=== PATIENT | male | born 1975 | race Caucasian/White ===

== ENCOUNTER 2021-11-14 22:04 | Emergency (ER) | payer BC, SELFPAY ==
--- NOTE | ~2021-11-14 | XR_ITS ---
EXAMINATION: LEFT ANKLE AND LEFT FOOT CLINICAL INFORMATION: Left ankle and foot pain. COMPARISON: None TECHNIQUE: Left foot 3 views. Left ankle 2 views. FINDINGS: Left foot: There is no visible acute fracture, dislocation or subluxation. There is mild degenerative dorsal enthesophyte first tarsometatarsal joint. Left ankle: There is no visible acute fracture, dislocation. The ankle mortise and subtalar joints are normal. There is minimal bimalleolar soft tissue swelling. XR/XR ankle LT min 3V IMPRESSION: Bimalleolar soft tissue swelling. No visible acute fracture or dislocation seen in left ankle or left foot.
--- NOTE | ~2021-11-14 | XR_ITS ---
EXAMINATION: LEFT ANKLE AND LEFT FOOT CLINICAL INFORMATION: Left ankle and foot pain. COMPARISON: None TECHNIQUE: Left foot 3 views. Left ankle 2 views. FINDINGS: Left foot: There is no visible acute fracture, dislocation or subluxation. There is mild degenerative dorsal enthesophyte first tarsometatarsal joint. Left ankle: There is no visible acute fracture, dislocation. The ankle mortise and subtalar joints are normal. There is minimal bimalleolar soft tissue swelling. XR/XR foot LT min 3V IMPRESSION: Bimalleolar soft tissue swelling. No visible acute fracture or dislocation seen in left ankle or left foot.
[2021-11-14 22:15] VITALS: BP 104/69; PULSE 70; RESP 16; TEMP 36.7; O2SAT 100; BMI 23.3
--- NOTE | 2021-11-15 00:20 | ED_ITS ---
HPI - Extremity Injury (Lower) General Chief Complaint: Extremity Injury, Lower Stated Complaint: foot broken? left Time Seen by Provider: 11/14/21 23:41 Source: patient Mode of arrival: ambulatory Limitations: no limitations History of Present Illness HPI Narrative: Patient presents emergency department for evaluation of left foot pain. He states when he was leaving from swimming today he rolled his left foot. Is uncertain which direction his foot rolled. Currently the pain is at the base of the toes, with swelling. Denies any ankle pain. Denies any numbness, tingling, or cool sensation to the foot. He is able to bear weight and ambulate, but it is painful. Denies any prior injury or surgery to the left ankle or foot. Related Data Allergies Allergy/AdvReac Type Severity Reaction Status Date / Time No Known Allergies Allergy Verified 11/14/21 22:14 Review of Systems Review of Systems: Musculoskeletal: Positive foot pain Yes all other systems are reviewed and are negative PMFSH Past Medical History Attestation statement: The following information was validated with the patient. Source: old records reviewed Social History Social History Advance Directives: No Advance Directives Information Provided: No Physical Exam Vital Signs: Vital Signs: Last Vital Signs Temp 98.0 F 11/14/21 22:15 Pulse 64 11/15/21 01:02 Resp 16 11/15/21 01:02 BP 128/71 11/15/21 01:02 Pulse Ox 99 11/15/21 01:02 O2 Del Method 11/14/21 22:15 BMI result Body Mass Index 23.3 Vital signs have been reviewed as normal and appeared to be correct. Blood pressure normal.? Heart rate normal.? Respiration rate normal. Temperature normal.? Oxygen saturation normal. Appearance: Alert.?Oriented to person, place and time. No acute distress.?Normal affect. CVS: Heart sounds normal. Normal heart rate and rhythm.? Pulses normal.?? Respiratory: No respiratory distress.? Lung sounds clear to auscultation bilaterally?? Abdomen: Soft and non-tender. Normoactive bowel sounds. Skin: Skin warm and dry.? Normal skin color.? Extremities: No lower extremity edema.? No calf ttp. Full AROM to left ankle. Tenderness to palpation over the dorsal foot at the base of the digits. Palpable 2+ DP/PT pulse Neuro: Moves all extremities spontaneously. Sensation intact bilaterally. No motor deficits. Ambulates with antalgic gait. Discharge Plan Discharge Clinical Impression: Foot sprain Patient Disposition: Home, Self-Care Instructions: Foot Sprain (ED) Additional Instructions: As we discussed, the x-ray of your left foot and ankle show no fracture or dislocation. The pain to your left foot at the base of the toes is most likely due to a sprain. Be sure to rest, apply ice for 10-15 minutes a few times daily, use Vitaliy bandage for compression, elevate the leg when possible. You can take ibuprofen 200 mg, 3 tablets (600mg) every 6-8 hours as needed for pain, in addition to Tylenol 500 mg, 2 tablets (1,000mg) every 4-6 hours as needed for pain, but not to exceed 3 doses daily (3,000mg).? Return to the emergency department any new or worsening symptoms or concerns. Follow-up with your primary care provider as needed. Stand Alone Forms: Work/School Release Interventions: ED Discharge Assessment Last Done: 11/15/21 01:12 Discharge Date/Time: 11/15/21 01:13
[2021-11-15 01:02] VITALS: BP 128/71; PULSE 64; RESP 16; O2SAT 99
== END 2021-11-15 01:13 | disposition home or self-care (01) ==
PROVIDERS: Emergency Provider Emergency Medicine; PCP Nurse Practitioner Family
DX: S93.602A Unspecified sprain of left foot, initial encounter (principal); X50.1XXA Overexertion from prolonged static or awkward postures, initial encounter; Y93.11 Activity, swimming; Y92.9 Unspecified place or not applicable; Y99.9 Unspecified external cause status
CPT/HCPCS: 73610; 73630; 99283

== ENCOUNTER 2021-12-15 06:23 | Outpatient (REF) | payer BC, SELFPAY ==
[2021-12-15 11:24] LABS: MANUAL DIFF FLAG NO
[2021-12-15 11:44] LABS: Basophils Percent Auto 0.8 % (0-2); Eosinophils Absolute Auto 0.1 X10*3/uL (0.0-0.4); Eosinophils Percent Auto 2.3 % (0-4); Hematocrit 50.5 % (42.0-52.0); Hemoglobin 17.5 g/dl (14.0-18.0); Imm Gran Abs Auto 0.01 X10*3/uL (0.00-0.03); Imm Gran Pct Auto 0.3 % (0.0-0.4); Lymphocytes Absolute Auto 1.5 X10*3/uL (1.2-4.9); Lymphocytes Percent Auto 36.9 % (20-40); Mean Corpuscular HGB Conc 34.7 g/dl (31.0-36.0); Mean Corpuscular Hemoglobin 31.7 pg (27.0-33.0); Mean Corpuscular Volume 91.5 fL (80.0-98.0); Mean Platelet Volume 11.5 fL (9.4-12.4); Monocytes Absolute Auto 0.5 X10*3/uL (0.1-1.2); Monocytes Percent Auto 11.7 % (2-11); Neutrophils Absolute Auto 1.9 x10*3/uL (2.0-8.3); Platelet Count 191 X10*3/uL (160-400); Red Blood Count 5.52 X10*6/uL (4.60-5.80); Red Cell Distribution Width 13.2 % (11.0-16.0); White Blood Count 3.9 X10*3/uL (4.8-10.8)
[2021-12-15 12:40] LABS: Alanine Aminotransferase 23 U/L (0-40); Albumin Level 4.6 g/dL (3.5-5.0); Alkaline Phosphatase 64 U/L (39-117); Anion Gap 13 (12-20); Aspartate Amino Transferase 18 U/L (5-37); Bilirubin Total 1.4 mg/dL (0.0-1.0); Blood Urea Nitrogen 17 mg/dL (9-16); Calcium 9.4 mg/dL (8.4-10.2); Carbon Dioxide 28 mmol/L (22-29); Chloride 101 mmol/L (96-108); Cholesterol 220 mg/dL; Estimated Glomerular Filt Rate > 60; Glucose Fasting 93 mg/dL (60-99); HDL Cholesterol 63 mg/dL; LDL Cholesterol Calculated 140 mg/dl; Potassium 4.2 mmol/L (3.3-5.1); Sodium 138 mmol/L (135-145); Total Protein 7.3 g/dL (6.5-8.0); Triglycerides 85 mg/dL
[2021-12-16 12:01] LABS: Appearance Urine Clear; Color Urine Yellow; Glucose Urine UA Negative (Negative); Leukocyte Esterase Urine Negative (Negative); Nitrite Urine Negative (Negative); Urine Blood Negative (Negative); Urine Ketones Negative (Negative); Urine Protein Negative (Neg-Trace)
== END 2021-12-15 06:24 | disposition home or self-care (01) ==
LOC: HO.HMGCLDS 06:23
PROVIDERS: PCP Nurse Practitioner Family; Visit Provider Nurse Practitioner Family
DX: Z00.00 Encounter for general adult medical examination without abnormal findings (principal)
CPT/HCPCS: 36415; 80053; 80061; 81003; 84443; 85025

== ENCOUNTER 2021-12-16 06:39 | Outpatient (REF) | payer BC, SELFPAY | END 2021-12-16 06:40 | disposition home or self-care (01) | LOC: HO.HMGCLDS 06:39 | PROVIDERS: PCP Nurse Practitioner Family; Visit Provider Nurse Practitioner Family | DX: Z13.89 Encounter for screening for other disorder (principal) ==

== ENCOUNTER 2022-06-07 07:49 | Day surgery (SDC) | payer BC, SELFPAY ==
[2022-06-02 13:56] VITALS: BMI 23.3
--- NOTE | 2022-06-06 13:23 | HO.ANESPROP2 ---
HPI - Anesthesia Eval Consult details Narrative: 46yo M for Colonoscopy PMFSH Active Problems Active Problems: All Active Problems (Updated 06/02/22 @ 13:55 by Suzette Dickerson RN) Screening for colon cancer (Acute) Physical exam (Acute) Dyslipidemia (Acute) Past Medical History Medical History (Updated 06/02/22 @ 13:55 by Suzette Dickerson RN) No pertinent past medical history Family History Family History Father Substance use disorder Surgical History Surgical History (Updated 06/02/22 @ 13:54 by Suzette Dickerson RN) Hx of hernia repair Social History Social History Housing: House Patient Tobacco Use Status: Never used Tobacco e-Cigarette/Vaping Use: Never Used Second Hand Smoke Exposure: No service: No Current occupational status: employed Current occupation: [employer] Current occupational exposures/hazards: Yes Cognitive needs: No Hearing needs: No Vision needs: No Meds Allergies Allergy/AdvReac Type Severity Reaction Status Date / Time No Known Allergies Allergy Verified 01/18/22 16:01 Exam Exam Date and Time: June 06, 2022 1323 Height,Weight and Vital Signs: Height 5 ft 6 in Weight 65.771 kg Pertinent Lab Results Pertinent Lab Results: Laboratory Tests 12/15/21 12/15/21 06:30 06:30 WBC 3.9 L Hgb 17.5 Hct 50.5 Plt Count 191 Sodium 138 Potassium 4.2 Chloride 101 Carbon Dioxide 28 BUN 17 H Creatinine 1.04 Assessment and Plan Assessment Anesthesia Assessment: Chart Reviewed
[2022-06-07 08:55] VITALS: BP 115/80; PULSE 81; RESP 14; TEMP 36.9; O2SAT 100
[2022-06-07] MEDS: Lactated Ringers 1,000 ML 100 ML IVCONT (08:57)
--- NOTE | 2022-06-07 09:00 | MHC.SHP ---
Pre-Procedural Eval Section A Date of Service: 06/07/22 Section B Chief Complaint: Encounter for screening for malignant neoplasm of Relevant Family History (Specify if Yes): No Relevant Social History: None Present Medications: see Short Stay Collaborative assessment Medical History: Significant History (dyslipidemia) History of Previous Operations: Relevant previous surgery/procedure and date(s) (Hx of hernia repair) Allergies: Allergies Allergy/AdvReac Type Severity Reaction Status Date / Time No Known Allergies Allergy Verified 01/18/22 16:01 Review of Systems Sugical H&P ROS: Negative: Constitution, Cardiovascular, Respiratory, Neurological, Psychiatric, Hem-Onc, Allergic/Immunologic, Gastrointestinal, Genitourinary, Musculoskeletal, Integumentary, Endocrine and Eyes/Ears/Nose/Throat Exam Surgical H&P Exam: Normal: HEENT, Normal: Heart, Normal: Lungs, Normal: Extremities, Normal: Abdomen, Normal: Skin and Normal: Neurological Plan Diagnosis/Plan: Unchanged I have reviewed the history and physical and performed a pertinent physical examination on my patient. No changes have occurred unless specified. Time Spent With Patient Time: Total time managing care of this patient today ____ minutes.
--- NOTE | 2022-06-07 09:02 | W.PM.OPN ---
Operative Note Operative Note Date of Service: 06/07/22 Narrative: Operative Information Procedure Description: Colonoscopy Indication: screening Anesthesia: MAC COLONOSCOPY Instrument: Olympus variable stiffness pediatric scope 190L Colonoscopy Monitoring: Vital signs and clinical assessment, continuous EKG monitoring, Pulse oximetry, Carbon Dioxide monitoring and blood pressure monitoring were done throughout the procedure. Colon withdrawal time was 12 minutes. Procedure: The patient was placed in the left lateral decubitis position and pre-procedure medications were administered. After a digital rectal examination of the ano-rectum, the video colonoscope was inserted into the rectum and advanced through the colon to the cecum/TI. The colonoscope was slowly withdrawn in a retrograde panoramic fashion and the colon mucosa was carefully examined including a retroflexed view of the rectum. Findings and interventions are described below. Procedure Difficulty: easy Findings: Terminal Ileum-normal Cecum:normal Ascending Colon: normal Transverse Colon -normal Descending Colon:normal Sigmoid Colon: 12 mm pedunculated polyp, base injected with epinephrine and then removed with hot snare with one clip applied ot defect Rectum: Retroflexion with small internal hemorrhoids, grade I, 8- mm sessile polyp removed with cold snare Anorectum - normal Colon preparation: [place] Bowel Preparation Scale Right colon; 3 Transverse colon: 3 Left colon; 3 (0 = Unprepared colon segment with mucosa not seen due to solid stool that cannot be cleared. 1 = Portion of mucosa of the colon segment seen, but other areas of the colon segment not well seen due to staining, residual stool and/or opaque liquid. 2 = Minor amount of residual staining, small fragments of stool and/or opaque liquid, but mucosa of colon segment seen well. 3 = Entire mucosa of colon segment seen well with no residual staining, small fragments of stool or opaque liquid) Impression and Post Procedure Diagnosis: polyps internal hemorrhoids Plan: High fiber diet leaflet Avoid straining at stool, epsom salts and sitz bath, anusol supps or cream Repeat Colonoscopy in 3 years or earlier if clinically indicated Above findings were reviewed with the patient and relevant handouts were provided if indicated.
--- NOTE | 2022-06-07 09:30 | P.CONAN_ITS ---
HPI - Anesthesia Eval Consult details Narrative: screening [facility] Active Problems Active Problems: All Active Problems (Updated 06/02/22 @ 13:55 by Suzette Dickerson RN) Screening for colon cancer (Acute) Physical exam (Acute) Dyslipidemia (Acute) Past Medical History Medical History (Updated 06/02/22 @ 13:55 by Suzette Dickerson RN) No pertinent past medical history Family History Family History Father Substance use disorder Family history of problems with anesthesia: No Surgical History Surgical History (Updated 06/02/22 @ 13:54 by Suzette Dickerson RN) Hx of hernia repair History of Problems with Anesthesia: No Social History Social History Housing: House Patient Tobacco Use Status: Never used Tobacco e-Cigarette/Vaping Use: Never Used Second Hand Smoke Exposure: No Use of substances other than those prescribed or required for medical reasons: No Are you DNR?: No Advance Directives: No Advance Directives Information Provided: Yes service: No Current occupational status: employed Current occupation: [employer] Current occupational exposures/hazards: Yes Cognitive needs: No Hearing needs: No Vision needs: No Meds Allergies Allergy/AdvReac Type Severity Reaction Status Date / Time No Known Allergies Allergy Verified 01/18/22 16:01 Active Medications: Current Medications Lactated Ringer's (Lr) 1,000 mls @ 100 mls/hr IVCONT .Q10H CAPO Last Admin: 06/07/22 08:57 Dose: 100 mls/hr Exam Exam Date and Time: June 07, 2022 0930 Height,Weight and Vital Signs: Height 5 ft 6 in Weight 65.771 kg Last Vital Signs Temp 98.4 F 06/07/22 08:55 Pulse 81 06/07/22 08:55 Resp 14 06/07/22 08:55 BP 115/80 06/07/22 08:55 Pulse Ox 100 06/07/22 08:55 O2 Del Method 06/07/22 08:55 Airway Mallampati Class: I TM Dist: >3cm Neck ROM: Full Heart: rr Lungs: cte Assessment and Plan Final Anesthetic Review Family History of Problems with Anesthesia: No History of Problems with Anesthesia: No NPO: Yes ASA Class: I Final Preanesthetic Review: No Changes in Pt Med Stat, Meds/Allgs Chart Reviewed, Consent Obtained/Reviewed and Anes Risks/Benef Reviewed Patient Risk: Low Procedure Risk: Low Anesthetic Plan Anesthetic Plan: MAC: Disposition: Standard PACU
[2022-06-07 09:52] VITALS: BP 103/46; PULSE 78; RESP 12; TEMP 36.2; O2SAT 100
[2022-06-07 10:07] VITALS: BP 110/74; PULSE 70; RESP 18; TEMP 36.2; O2SAT 100
== END 2022-06-07 10:33 | disposition home or self-care (01) ==
PROVIDERS: PCP Nurse Practitioner Family; Visit Provider Internal Medicine Gastroenterology
PROC: 0DJD8ZZ Inspection of Lower Intestinal Tract, Via Natural or Artificial Opening Endoscopic (ICD-10-PCS; CPT 45378; principal; 2022-06-07 09:10)
DX: Z12.11 Encounter for screening for malignant neoplasm of colon (principal); K51.40 Inflammatory polyps of colon without complications; K62.1 Rectal polyp; K64.0 First degree hemorrhoids; E78.5 Hyperlipidemia, unspecified
CPT/HCPCS: 45385; 45381; 88305; J0171

== ENCOUNTER → 2022-06-21 15:21 | Outpatient (BNVA) | payer BC, SELFPAY | PROVIDERS: PCP Nurse Practitioner Family; Visit Provider Nurse Practitioner Family | DX: Z13.89 Encounter for screening for other disorder (principal) ==

== ENCOUNTER 2022-12-20 07:27 | Outpatient (AMB) | payer BC, SELFPAY ==
[2022-12-20 07:37] VITALS: BP 92/58; PULSE 48; O2SAT 99; BMI 23.9
--- NOTE | 2022-12-20 07:37 | MHC.PC.OV ---
Vital Signs 12/20/22 07:37 12/20/22 08:05 12/20/22 08:05 Height 5 ft 6 in Weight 148 lb 4 oz BMI 23.9 BP 92/58 L 104/70 Blood Pressure Location Lt brachial Lt brachial Position Sitting Sitting Pulse 48 L 54 Pulse Source Pulse Oximeter Pulse Oximetry (%) 99 Oxygen Delivery Method Room Air Intake Visit Reasons: Annual PE Allergies No Known Allergies Allergy (Verified 12/20/22 07:39) Medication List - Last Reconciled 12/20/22 by PANFILO Billings No Known Home Meds Tobacco use date assessed: 12/20/22 Dental Screening Dental Screen Date: 12/20/22 Did you have a dental visit in the last 12 months?: Yes Did you have a dental problem in the last 6 months where you did not have access to dental care?: No Was dental information given to patient?: Patient has dentist HPI Annual PE HPI Details Pt is here for a PE. Will order labs. Colon screen is up to date. Pt's blood pressure is low today. He eats well and is athletic. Pt denies any dizziness/feeling faint. He does not smoke or drink. 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 [facility] Medical History No pertinent past medical history Surgical History Hx of hernia repair Family History Father Substance use disorder Social History Housing: House Patient Tobacco Use Status: Never used Tobacco e-Cigarette/Vaping Use: Never Used Second Hand Smoke Exposure: No service: No Current occupational status: employed Current occupation: [employer] Current occupational exposures/hazards: Yes Cognitive needs: No Hearing needs: No Vision needs: No Questionnaire Thrive Questionnaire Date Thrive assessed: 12/14/21 ANTONIO-7 AMB Questionnaire ANTONIO-7 Date ANTONIO - 7 assessed: 12/14/21 Source: Developed by Drs. Danny Quintana, Tammi Huerta, Jamal Ramsay and colleagues, with an educational shaheen from [employer]. Review of Systems Const Denies chills and Denies fever(s) Eyes Denies blurry vision ENT Denies vertigo, Denies dizziness and Denies sore throat Card Denies chest pain at rest, Denies chest pain with activity, Denies diaphoresis, Denies dyspnea and Denies dyspnea on exertion Resp Denies cough, Denies dyspnea, Denies dyspnea on exertion and Denies wheezing GI Denies abdominal pain, Denies melena, Denies hematochezia, Denies constipation, Denies diarrhea and Denies loose stools Denies hematuria Musc Denies numbness and Denies tingling Skin/Breast Denies lesions Neuro Denies vertigo, Denies dizziness, Denies numbness and Denies tingling Psych Denies anxiety, Denies depression, Denies homicidal ideation, Denies suicidal ideation and Denies other (substance abuse) Aller/Immun Denies wheezing Physical exam (Primary Care) Vital Signs: Last Vital Signs Pulse 54 12/20/22 08:05 BP 104/70 12/20/22 08:05 Pulse Ox 99 12/20/22 07:37 Oxygen Delivery Method Room Air 12/20/22 07:37 BMI result Body Mass Index 23.9 Tobacco/Smoking Status: Tobacco use Status Tobacco use date assessed 12/20/22 12/20/22 07:41 Patient Tobacco Use Status Never used Tobacco 12/20/22 07:41 e-Cigarette/Vaping Use Never Used 12/20/22 07:41 Thrive Assessment: Date of Thrive Assessment Date Thrive assessed 12/14/21 12/20/22 07:41 Const General: cooperative Nutritional Appearance: well nourished Orientation/consciousness: patient oriented x3 HENMT Head: Yes normal to inspection, Yes normocephalic and Yes atraumatic Ears: TM's normal bilaterally Eyes General: appearance normal, both eyes and all related structures Alignment and Position: alignment normal and position normal Neck Neck: Yes normal visual inspection and Yes no lymphadenopathy Thyroid: Thyroid normal Resp Effort & Inspection: normal respiratory effort Auscultation: clear to auscultation bilaterally Cardio Rate: bradycardic Rhythm: regular rhythm Heart sounds: S1 normal heart sound present, S2 normal heart sound present and no murmurs GI Palpation (GI): Soft to palpation and nontender Auscultation: normal bowel sounds Male General Exam: Yes normal external exam Penis: normal penis Scrotum: scrotum normal, testes descended bilaterally and no inguinal hernias Testes: no testicular mass Skin Rashes: no rashes Neuro General: patient oriented x3, moves all extremities, no focal motor deficits and deep tendon reflexes 2+ bilaterally Romberg Test: Negative Psych Appearance: grossly normal Mental Status: mental status grossly normal Speech and movement: Normal speech and movement present Affect: normal affect Attitude: cooperative Thought process: Normal thought process present Thought content: Normal thought content present Insight: Good insight present (Psych) Judgement: Good judgement present (Psych) Assessment and Plan Assessment & Plan (1) Physical exam: Code(s): Z. - Encounter for general adult medical examination without abnormal findings Plan: Labs ordered Plan The patient agreed to the use of a outside medical sales representative for this encounter. Scribed for PANFILO Deras by Inga Forbes outside medical sales representative, on 12/20/2022 at 07:45 EST. Orders: Orders Complete Blood Count Auto Diff Today Z00.00 - Encounter for general adult medical examination without abnormal findings Comprehensive [place]. Panel Fast Today Z00.00 - Encounter for general adult medical examination without abnormal findings TSH reflex Free T4 Today Z00.00 - Encounter for general adult medical examination without abnormal findings UA CC w/rflx Micro + Cult Today Z00.00 - Encounter for general adult medical examination without abnormal findings Lipid Panel Today Z00.00 - Encounter for general adult medical examination without abnormal findings Coding Level of Care Code Est Pt Prev Care 40-64y(60695) Diagnoses Physical exam Z00.00
[2022-12-20 08:05] VITALS: BP 104/70; PULSE 54
== END 2022-12-20 08:12 | disposition home or self-care (01) ==
PROVIDERS: Visit Provider Nurse Practitioner Family
DX: Z00.00 Encounter for general adult medical examination without abnormal findings (principal)
CPT/HCPCS: 99396

== ENCOUNTER 2023-01-12 06:06 | Outpatient (REF) | payer BC, SELFPAY | END 2023-01-12 06:07 | disposition home or self-care (01) | LOC: HO.HMGCLDS 06:06 | PROVIDERS: PCP Nurse Practitioner Family; Visit Provider Nurse Practitioner Family | DX: Z00.00 Encounter for general adult medical examination without abnormal findings (principal); E78.5 Hyperlipidemia, unspecified; D72.819 Decreased white blood cell count, unspecified; Z13.29 Encounter for screening for other suspected endocrine disorder | CPT/HCPCS: 36415; 80053; 80061; 84443; 85025 ==

== ENCOUNTER 2023-01-13 04:46 | Outpatient (REF) | payer BC, SELFPAY | END 2023-01-13 04:47 | disposition home or self-care (01) | LOC: HO.HMGCLNP 04:46 | PROVIDERS: PCP Nurse Practitioner Family; Visit Provider Nurse Practitioner Family | DX: Z00.00 Encounter for general adult medical examination without abnormal findings (principal) | CPT/HCPCS: 81003 ==

== ENCOUNTER 2023-01-29 08:55 | Outpatient (REF) | payer BC, SELFPAY ==
--- NOTE | ~2023-01-29 | US_ITS ---
EXAMINATION: US ABDOMEN COMPLETE CLINICAL INFORMATION: Unspecified jaundice. Elevated bilirubin. COMPARISON: None available. TECHNIQUE: Real-time imaging of the abdominal viscera. Limited visualization due to bowel gas. FINDINGS: PANCREAS: Limited visualization of pancreatic tail and head. Imaged portion of pancreatic body is unremarkable. ABDOMINAL AORTA: Nonaneurysmal. INFERIOR VENA CAVA: Visualized portions are normal. LIVER: Diffusely heterogeneous hepatic echotexture is suggestive of possible hepatocellular disease. Limited visualization. GALLBLADDER: No gallstones. No gallbladder wall thickening. COMMON BILE DUCT: Normal in caliber measuring 0.4 cm in diameter. RIGHT KIDNEY: No hydronephrosis. No renal calculi. Limited visualization. The kidney measures 9.6 cm in maximum dimension. LEFT KIDNEY: No hydronephrosis. No renal calculi. Limited visualization. The kidney measures 10.0 cm in maximum dimension. SPLEEN: Splenomegaly. The spleen measures 13.0 cm in maximum dimension. FREE FLUID: None. US/US abdomen complete IMPRESSION: 1. Diffusely heterogeneous hepatic echotexture is suggestive of possible hepatocellular disease. Correlation with liver function tests and clinical exam recommended. 2. Splenomegaly.
[2023-01-29 11:38] LABS: MANUAL DIFF FLAG NO
[2023-01-29 11:59] LABS: Bilirubin Direct 0.3 mg/dL (0.0-0.5); Cholesterol 185 mg/dL (<200); HDL Cholesterol 61 mg/dL (>40); LDL Cholesterol Calculated 110 mg/dL (<100); Lactate Dehydrogenase 197 U/L (118-273); Triglycerides 71 mg/dL (<150)
[2023-01-29 12:22] LABS: Basophils Percent Auto 0.6 % (0-2); Eosinophils Absolute Auto 0.1 X10*3/uL (0.0-0.4); Eosinophils Percent Auto 2.4 % (0-4); Hematocrit 49.2 % (42.0-52.0); Hemoglobin 17.1 g/dl (14.0-18.0); Imm Gran Abs Auto 0.01 X10*3/uL (0.00-0.03); Imm Gran Pct Auto 0.3 % (0.0-0.4); Immature Retic Fraction 15.6 % (2.3-13.4); Lymphocytes Absolute Auto 1.2 X10*3/uL (1.2-4.9); Lymphocytes Percent Auto 34.7 % (20-40); Mean Corpuscular HGB Conc 34.8 g/dl (31.0-36.0); Mean Corpuscular Hemoglobin 32.3 pg (27.0-33.0); Mean Platelet Volume 11.5 fL (9.4-12.4); Monocytes Absolute Auto 0.3 X10*3/uL (0.1-1.2); Monocytes Percent Auto 9.3 % (2-11); Neutrophils Absolute Auto 1.8 x10*3/uL (2.0-8.3); Neutrophils Percent Auto 52.7 % (45-73); Platelet Count 219 X10*3/uL (160-400); Red Blood Count 5.29 X10*6/uL (4.60-5.80); Red Cell Distribution Width 13.2 % (11.0-16.0); Retic HGB Equivalent 38.3 pg (30.0-35.0); Reticulocytes Absolute 0.107 X10*6/uL (0.026-0.095); White Blood Count 3.3 X10*3/uL (4.8-10.8)
[2023-01-29 22:03] LABS: Haptoglobin 81 MG/DL ((30-200))
== END 2023-01-29 08:56 | disposition home or self-care (01) ==
LOC: HO.HMGCX 08:55
PROVIDERS: PCP Nurse Practitioner Family; Visit Provider Nurse Practitioner Family
DX: R17 Unspecified jaundice (principal); E78.5 Hyperlipidemia, unspecified
CPT/HCPCS: 36415; 76700; 80061; 82247; 82248; 83010; 83615; 85025; 85045

== ENCOUNTER 2023-03-02 10:48 | Outpatient (REF) | payer BC, SELFPAY ==
[2023-03-02 10:58] LABS: MANUAL DIFF FLAG NO
[2023-03-02 11:36] LABS: Basophils Percent Auto 0.6 % (0-2); Eosinophils Percent Auto 0.4 % (0-4); Hematocrit 48.5 % (42.0-52.0); Hemoglobin 16.7 g/dl (14.0-18.0); Imm Gran Abs Auto 0.01 X10*3/uL (0.00-0.03); Imm Gran Pct Auto 0.2 % (0.0-0.4); Lymphocytes Absolute Auto 1.1 X10*3/uL (1.2-4.9); Lymphocytes Percent Auto 22.1 % (20-40); Mean Corpuscular HGB Conc 34.4 g/dl (31.0-36.0); Mean Corpuscular Hemoglobin 31.7 pg (27.0-33.0); Mean Corpuscular Volume 92.2 fL (80.0-98.0); Mean Platelet Volume 11.4 fL (9.4-12.4); Monocytes Absolute Auto 0.3 X10*3/uL (0.1-1.2); Monocytes Percent Auto 6.4 % (2-11); Neutrophils Absolute Auto 3.4 x10*3/uL (2.0-8.3); Neutrophils Percent Auto 70.3 % (45-73); Platelet Count 196 X10*3/uL (160-400); Red Blood Count 5.26 X10*6/uL (4.60-5.80); Red Cell Distribution Width 13.2 % (11.0-16.0); White Blood Count 4.9 X10*3/uL (4.8-10.8)
[2023-03-02 12:10] LABS: Alanine Aminotransferase 16 U/L (0-40); Albumin Level 4.6 g/dL (3.5-5.0); Alkaline Phosphatase 51 U/L (39-117); Anion Gap 13 (12-20); Aspartate Amino Transferase 18 U/L (5-37); Bilirubin Total 0.9 mg/dL (0.0-1.0); Blood Urea Nitrogen 14 mg/dL (9-16); Calcium 9.8 mg/dL (8.4-10.2); Carbon Dioxide 29 mmol/L (22-29); Chloride 105 mmol/L (96-108); Estimated Glomerular Filt Rate > 60; Glucose Random 111 mg/dL (60-115); Iron 150 mcg/dL (45-160); Percent Iron Saturation 55 % (15-50); Potassium 4.1 mmol/L (3.3-5.1); Sodium 143 mmol/L (135-145); Total Iron Binding Capacity 275 mcg/dL (228-428); Total Protein 7.2 g/dL (6.5-8.0); Unsaturated Iron Binding 125 ug/dL
[2023-03-02 12:25] LABS: Ferritin 171 ng/mL (20-250)
[2023-03-02 14:19] LABS: HBS Num1 0.25 mIU/mL (0-7.99); HBc Num1 0.13 S/CO (0.00-0.79); HBsAGNum1 0.27 S/CO (0.00-0.99); Hepatitis A Antibody IgM 0.16 Index (0-0.79); Hepatitis B Core Antibody Nonreactive (Nonreactive); Hepatitis B Surface Antigen Negative (Negative); ~HepC Num1 0.13 S/CO (0.00-0.79); ~Hepatitis A Antibody IgM Nonreactive (Nonreactive); ~Hepatitis B Surface Antibody NONREACTIVE (Nonreactive); ~Hepatitis C Antibody Nonreactive (Nonreactive)
[2023-03-06 12:19] LABS: Smooth Muscle Antibody <20 U (<20)
== END 2023-03-02 10:49 | disposition home or self-care (01) ==
LOC: HO.LAB 10:48
PROVIDERS: PCP Nurse Practitioner Family; Visit Provider Nurse Practitioner Family
DX: D72.819 Decreased white blood cell count, unspecified (principal); R93.5 Abnormal findings on diagnostic imaging of other abdominal regions, including retroperitoneum; R53.83 Other fatigue; D64.9 Anemia, unspecified
CPT/HCPCS: 36415; 80053; 82728; 83540; 85025; 86015; 86704; 86706; 86709; 86803; 87340

== ENCOUNTER → 2023-03-06 10:57 | Outpatient (BNV) | payer BC, SELFPAY | PROVIDERS: PCP Nurse Practitioner Family; Visit Provider Internal Medicine Medical Oncology | DX: D72.819 Decreased white blood cell count, unspecified (principal) | CPT/HCPCS: 99203 ==

== ENCOUNTER 2023-04-01 11:48 | Emergency (ER) | payer BC, SELFPAY ==
--- NOTE | 2023-04-01 11:51 | ED_ITS ---
HPI - Wound/Laceration General Chief Complaint: Wound/Laceration Stated Complaint: Laceration on hand Source: patient Mode of arrival: ambulatory Limitations: no limitations History of Present Illness HPI narrative: Patient is a 47-year-old male presents emergency department for evaluation of left second digit along the radial aspect, laceration, accidental sustained from a razor while working, bleeding currently controlled. Reports last tetanus <5 years ago. Denies numbness tingling cold sensation to the digit. Able to flex and extend the digit completely. Related Data Home Medications Medication Instructions Recorded Confirmed No Known Home Meds 12/20/22 03/06/23 Allergies Allergy/AdvReac Type Severity Reaction Status Date / Time No Known Allergies Allergy Verified 03/06/23 11:09 Review of Systems Review of Systems: Yes all other systems are reviewed and are negative [facility] Past Medical History Attestation statement: The following information was validated with the patient. Source: old records reviewed Medical History No pertinent past medical history Surgical History Hx of hernia repair Family History Family History (Updated 03/06/23 @ 11:08 by Aurelia Singh) Father Substance use disorder Mother Lung cancer Social History Social History (Updated 03/06/23 @ 11:09 by Aurelia Singh) Housing: House Patient Tobacco Use Status: Never used Tobacco e-Cigarette/Vaping Use: Never Used Second Hand Smoke Exposure: No service: No Current occupational status: employed Current occupation: [employer] Current occupational exposures/hazards: Yes Cognitive needs: No Hearing needs: No Vision needs: No Physical Exam Vital Signs: Vital Signs: Last Vital Signs Temp 97.3 F 04/01/23 11:53 Pulse 73 04/01/23 11:53 Resp 18 04/01/23 11:53 BP 115/81 04/01/23 11:53 Pulse Ox 97 04/01/23 11:53 O2 Del Method Room Air 04/01/23 11:53 BMI result Body Mass Index 23.6 Appearance: Alert.?Oriented to person, place and time. No acute distress.?Normal affect. Neck: Normal inspection.? Neck supple.?? CVS: Heart sounds normal. Normal heart rate and rhythm.? Pulses normal.?? Respiratory: No respiratory distress.? Lung sounds clear to auscultation bilaterally?? Skin: Skin warm and dry.? Normal skin color.? Left index finger radial aspect 2 cm linear laceration Extremities: No extremity edema Neuro: Moves all extremities spontaneously. Sensation intact bilaterally. Ambulates with normal steady gait. Medical Decision Making Medical Decision Making MDM Narrative: Patient is a 47-year-old male presents emergency department for evaluation of a laceration to the left index finger. Accidental in nature. Bleeding controlled. No anticoagulants or known coagulation disorders. Reports tetanus vaccination is up-to-date. Full AROM intact to the digit, clinically have lower suspicion for tendon involvement. Neurovascularly intact distally. Sustained from a razor, denies possibility of foreign body. Irrigated extensively. Repaired as per procedural section of this note. Reviewed worrisome signs and symptoms that would warrant re-evaluation in the emergency department. Suture removal in 10-14 days. All questions answered. Stable for discharge. Differential Diagnosis Differential Diagnoses: The differential diagnosis associated with the presentation includes (Laceration, uncontrolled bleeding, neurovascular compromise. ) Admission/Observation Consideration of admission/observation: Escalation of care including admission/observation considered (See narrative above) External Record Review External record reviewed: Outpatient record Tests considered The following testing was considered but not selected: XR deferred, low suspicion for osseous involvement or foreign body Prescription Management I considered prescription management with: Pain Medication (Acetaminophen/ibuprofen) Procedures Laceration Laceration 1: Site: hand Side (If applicable): left Size (cm): 2 Description: linear Depth: simple, single layer Local Anesthetic: lidocaine 1% Amount of anesthesia used (mL): 2 Pre-repair: wound explored, irrigated extensively and deep structures intact Skin layer closed with: nylon Size (cm): 5-0 Number of sutures: 7 Technique: simple, interrupted Discharge Plan Discharge Clinical Impression: Finger laceration Qualifiers: Encounter type: initial encounter Finger: index finger Damage to nail status: without damage Foreign body presence: without foreign body Laterality: left Qualified Code(s): S61.211A - Laceration without foreign body of left index finger without damage to nail, initial encounter Patient Disposition: Home, Self-Care Instructions: Finger Laceration (ED) Additional Instructions: Stitches will need to be removed in 10-14 days. You may return back to emergency department for removal or follow-up with your primary care provider for removal. Return back to emergency department any new or worsening symptoms or concerns. If you develop redness, swelling, pain, pus like discharge, fevers, numbness or tingling, inability to move the finger the new should be re-evaluated. Prescriptions: No Action No Known Home Meds Referrals: Physician,Unknown J [Physician] -
[2023-04-01 11:53] VITALS: BP 115/81; PULSE 73; RESP 18; TEMP 36.3; O2SAT 97; BMI 23.6
[2023-04-01] MEDS: Lidocaine HCl 1 % MPF 5 ML VIAL SUBCUT (12:01)
== END 2023-04-01 12:53 | disposition home or self-care (01) ==
PROVIDERS: Emergency Provider Student in an Organized Health Care Education/Training Program; PCP Nurse Practitioner Family
DX: S61.211A Laceration without foreign body of left index finger without damage to nail, initial encounter (principal); W26.8XXA Contact with other sharp object(s), not elsewhere classified, initial encounter; Y93.9 Activity, unspecified; Y92.9 Unspecified place or not applicable; Y99.0 Civilian activity done for income or pay
CPT/HCPCS: 12001; 99282; 99284

== ENCOUNTER 2024-01-01 07:31 | Outpatient (AMB) | payer BC, SELFPAY ==
[2024-01-01 07:35] VITALS: BP 92/62; PULSE 52; O2SAT 97; BMI 23.9
--- NOTE | 2024-01-01 07:35 | MHC.PC.OV ---
Vital Signs 01/01/24 07:35 Height 5 ft 6 in Weight 148 lb BMI 23.9 BP 92/62 Blood Pressure Location Lt brachial Position Sitting Pulse 52 Pulse Source Pulse Oximeter Pulse Oximetry (%) 97 Oxygen Delivery Method Room Air Intake Visit Reasons: PE Intake Note: Pt is here today for his PE Allergies No Known Allergies Allergy (Verified 01/01/24 07:36) Medication List - Last Reconciled 01/01/24 by PANFILO Billings No Known Home Meds Tobacco use date assessed: 01/01/24 Dental Screening Dental Screen Date: 01/01/24 Did you have a dental visit in the last 12 months?: Yes Did you have a dental problem in the last 6 months where you did not have access to dental care?: No Was dental information given to patient?: Patient has dentist HPI PE HPI Details Pt is here for a PE. Will order labs. Colon screen is up to date. Pt has a hx of hemochromatosis. Will order labs. Pt c/o right wrist pain. Will order XR. Pt also c/o right shoulder pain. He reports a previous fracture in his AC joint. Will order XR. NOTE: signed crossbow license, difficulty pulling back a compound bow, pt is a avid shelley. [facility] Medical History No pertinent past medical history Surgical History Hx of hernia repair Family History Father Substance use disorder Mother Lung cancer Social History Housing: House Patient Tobacco Use Status: Never used Tobacco e-Cigarette/Vaping Use: Never Used Second Hand Smoke Exposure: No service: No Current occupational status: employed Current occupation: [employer] Current occupational exposures/hazards: Yes Cognitive needs: No Hearing needs: No Vision needs: Yes Questionnaire PHQ-9 Over the last 2 weeks, how often have you been bothered by any of the following problems? 1. Little interest or pleasure in doing things: not at all 2. Feeling down, depressed, or hopeless: not at all 3. Trouble falling or staying asleep, or sleeping too much: not at all 4. Feeling tired or having little energy: not at all 5. Poor appetite or overeating: not at all 6. Feeling bad about yourself - or that you are a failure or have let yourself or your family down: not at all 7. Trouble concentrating on things, such as reading the newspaper or watching television: not at all 8. Moving or speaking so slowly that other people could have noticed. Or the opposite - being so fidgety or restless that you have been moving around a lot more than usual: not at all 9. Thoughts that you would be better off or of hurting yourself in some way: not at all Total score: 0 Depression Screening Interpretation: Negative Depression Screening Done: Yes 42556 - PHQ-9 Billing: Yes Source: Developed by Drs. Danny Quintana, Tammi Huerta, Jamal Ramsay and colleagues, with an educational shaheen from [employer]. Thrive Questionnaire Date Thrive assessed: 01/01/24 I am a: Patient What is your living situation today?: I have a steady place to live Within the past 12 months, did the food you bought not last and you didn't have the money to get more?: Never true Within the past 12 months, did you worry whether your food would run out before you got money to buy more?: Never true Do you have trouble paying for medicines?: No Do you have trouble getting transportation to medical appointments?: No Do you have trouble paying your heating and electricity bill?: No Do you have trouble taking care of your child, family member or friend?: No Do you have trouble with day-to-day activities such as bathing, preparing meals, shopping, managing finances, etc.?: No Are you interested in more education?: No Please select the resources that you would like help with: None Currently or been in a relationship where the following occur: No concerns reported THRIVE Score: 0 AUDIT C Alcohol Use Questionnaire (AUDIT-C) 1. How often do you have a drink containing alcohol?: Never Total Score: 0 ANTONIO-7 AMB Questionnaire ANTONIO-7 Date ANTONIO - 7 assessed: 01/01/24 Feeling nervous, anxious, or on edge: 0 = Not at all Not being able to stop or control worryin = Not at all Worrying too much about different things: 0 = Not at all Trouble relaxin = Not at all Being so restless that it is hard to sit still: 0 = Not at all Becoming easily annoyed or irritable: 0 = Not at all Feeling afraid as if something awful might happen: 0 = Not at all Total ANTONIO-7 score (0-4 normal; 5-9 mild; 10-14 moderate; 15-21 severe): 0 Source: Developed by Drs. Danny Quintana, Tammi Huerta, Jamal Ramsay and colleagues, with an educational shaheen from [employer]. ANTONIO-7 Assessment Billing ANTONIO-7 Assessment Tool: ANTONIO-7 Assessment 34961 Review of Systems Const Denies chills and Denies fever(s) Eyes Denies blurry vision ENT Denies vertigo, Denies dizziness and Denies sore throat Card Denies chest pain at rest, Denies chest pain with activity, Denies diaphoresis, Denies dyspnea and Denies dyspnea on exertion Resp Denies cough, Denies dyspnea, Denies dyspnea on exertion and Denies wheezing GI Denies abdominal pain, Denies melena, Denies hematochezia, Denies constipation, Denies diarrhea and Denies loose stools Denies hematuria Musc Denies numbness and Denies tingling Skin/Breast Denies lesions Neuro Denies vertigo, Denies dizziness, Denies numbness and Denies tingling Psych Denies anxiety, Denies depression, Denies homicidal ideation, Denies suicidal ideation and Denies other (substance abuse) Aller/Immun Denies wheezing Physical exam (Primary Care) Vital Signs: Last Vital Signs Pulse 52 01/01/24 07:35 BP 92/62 01/01/24 07:35 Pulse Ox 97 01/01/24 07:35 Oxygen Delivery Method Room Air 01/01/24 07:35 BMI result Body Mass Index 23.9 Tobacco/Smoking Status: Tobacco use Status Tobacco use date assessed 01/01/24 01/01/24 07:40 Patient Tobacco Use Status Never used Tobacco 01/01/24 07:40 e-Cigarette/Vaping Use Never Used 01/01/24 07:40 PHQ-9: PHQ-9 Score PHQ-9: Total score 0 01/01/24 07:40 Depression Screening Interpretation: Negative Thrive Assessment: Date of Thrive Assessment Date Thrive assessed 01/01/24 01/01/24 07:40 Currently or been in a relationship where the following occur: No concerns reported Const General: cooperative Nutritional Appearance: well nourished Orientation/consciousness: patient oriented x3 HENMT Head: Yes normal to inspection, Yes normocephalic and Yes atraumatic Ears: TM's normal bilaterally Eyes General: appearance normal, both eyes and all related structures Alignment and Position: alignment normal and position normal Neck Neck: Yes normal visual inspection, Yes no lymphadenopathy and Yes supple Resp Effort & Inspection: normal respiratory effort Auscultation: clear to auscultation bilaterally Cardio Rate: regular rate Rhythm: regular rhythm Heart sounds: S1 normal heart sound present, S2 normal heart sound present and no murmurs GI Palpation (GI): Soft to palpation and nontender Auscultation: normal bowel sounds Male General Exam: Yes normal external exam Penis: normal penis Scrotum: scrotum normal, testes descended bilaterally and no inguinal hernias Testes: no testicular mass Skin Rashes: no rashes Neuro General: patient oriented x3, moves all extremities, no focal motor deficits and deep tendon reflexes 2+ bilaterally Romberg Test: Negative Extrem Other: right shoulder: - wesley, - neers, - jobs, tenderness to anterior right shoulder with anterior RUE raises and lateral raises. tenderness around a/c joint region with ROM and deep palpation Psych Appearance: grossly normal Mental Status: mental status grossly normal Speech and movement: Normal speech and movement present Affect: normal affect Attitude: cooperative Thought process: Normal thought process present Thought content: Normal thought content present Insight: Good insight present (Psych) Judgement: Good judgement present (Psych) Assessment and Plan Assessment & Plan (1) Physical exam: Code(s): Z00.00 - Encounter for general adult medical examination without abnormal findings Plan: Labs ordered (2) Hemochromatosis: Code(s): E83.119 - Hemochromatosis, unspecified Plan: Labs ordered (3) Right wrist pain: Code(s): M25.531 - Pain in right wrist Plan: XR ordered (4) Right shoulder pain: Code(s): M25.511 - Pain in right shoulder Plan: XR ordered Plan The patient agreed to the use of a medical interpreter for this encounter. Scribed for ASIYA Deras- by Inga Forbes, medical interpreter, on 01/01/2024 at 07:50 EST. Orders: Orders TSH reflex Free T4 Today Z00.00 - Encounter for general adult medical examination without abnormal findings IRON PROFILE Today E83.119 - Hemochromatosis, unspecified XR wrist RT 2V Today M25.531 - Pain in right wrist XR shoulder RT min 2V Today M25.511 - Pain in right shoulder Complete Blood Count Auto Diff Today Z00.00 - Encounter for general adult medical examination without abnormal findings Comprehensive [place]. Panel Fast Today Z00.00 - Encounter for general adult medical examination without abnormal findings UA CC w/rflx Micro + Cult Today Z00.00 - Encounter for general adult medical examination without abnormal findings Lipid Panel Today Z00.00 - Encounter for general adult medical examination without abnormal findings Ferritin Today E83.119 - Hemochromatosis, unspecified Coding Level of Care Code Est Pt Prev Care 40-64y(34580) Diagnoses Physical exam Z00.00 Hemochromatosis E83.119 Right wrist pain M25.531 Right shoulder pain M25.511 Additional Codes ANTONIO-7 Assessment Billing - ANTONIO-7 Assessment Tool: ANTONIO-7 Assessment 66211 ([id number])
== END 2024-01-01 08:11 | disposition home or self-care (01) ==
PROVIDERS: PCP Nurse Practitioner Family; Visit Provider Nurse Practitioner Family
DX: Z00.00 Encounter for general adult medical examination without abnormal findings (principal); E83.119 Hemochromatosis, unspecified; M25.531 Pain in right wrist; M25.511 Pain in right shoulder

== ENCOUNTER → 2024-01-01 07:31 | Outpatient (BNVA) | payer BC, SELFPAY | PROVIDERS: PCP Nurse Practitioner Family; Visit Provider Nurse Practitioner Family | DX: Z00.01 Encounter for general adult medical examination with abnormal findings (principal); M25.531 Pain in right wrist; M25.511 Pain in right shoulder; E83.119 Hemochromatosis, unspecified | CPT/HCPCS: 96127 ==

== ENCOUNTER 2024-01-01 08:13 | Outpatient (REF) | payer BC, SELFPAY ==
--- NOTE | ~2024-01-01 | XR_ITS ---
EXAMINATION: X-RAY RIGHT SHOULDER, RIGHT WRIST CLINICAL INDICATION: Pain in right shoulder. TECHNIQUE: 4 views right shoulder, 3 views right wrist COMPARISON: None available. FINDINGS: Mild degenerative changes in the acromioclavicular and glenohumeral joints. No abnormal soft tissue calcifications appreciated adjacent to the humeral head. Right wrist: Moderate degenerative changes in the first carpometacarpal and metacarpophalangeal joints with joint space narrowing and hypertrophic change. Bone mineralization is normal. XR/XR shoulder RT min 2V IMPRESSION: 1. Mild degenerative changes right shoulder. 2. Moderate degenerative changes right wrist. Electronically signed by: Yandy Nevarez MD 01/28/2024 12:59 PM EDT RP
--- NOTE | ~2024-01-01 | XR_ITS ---
EXAMINATION: X-RAY RIGHT SHOULDER, RIGHT WRIST CLINICAL INDICATION: Pain in right shoulder. TECHNIQUE: 4 views right shoulder, 3 views right wrist COMPARISON: None available. FINDINGS: Mild degenerative changes in the acromioclavicular and glenohumeral joints. No abnormal soft tissue calcifications appreciated adjacent to the humeral head. Right wrist: Moderate degenerative changes in the first carpometacarpal and metacarpophalangeal joints with joint space narrowing and hypertrophic change. Bone mineralization is normal. XR/XR wrist RT min 3V IMPRESSION: 1. Mild degenerative changes right shoulder. 2. Moderate degenerative changes right wrist. Electronically signed by: Yanyd Nevarez MD 01/28/2024 12:59 PM EDT RP
[2024-01-01 10:13] LABS: MANUAL DIFF FLAG NO
[2024-01-01 10:17] LABS: Basophils Percent Auto 0.7 % (0-2); Eosinophils Absolute Auto 0.1 X10*3/uL (0.0-0.4); Eosinophils Percent Auto 2.6 % (0-4); Hematocrit 47.8 % (42.0-52.0); Hemoglobin 16.5 g/dl (14.0-18.0); Lymphocytes Absolute Auto 1.1 X10*3/uL (1.2-4.9); Lymphocytes Percent Auto 36.4 % (20-40); Mean Corpuscular HGB Conc 34.5 g/dl (31.0-36.0); Mean Corpuscular Hemoglobin 31.6 pg (27.0-33.0); Mean Corpuscular Volume 91.6 fL (80.0-98.0); Mean Platelet Volume 11.2 fL (9.4-12.4); Monocytes Absolute Auto 0.3 X10*3/uL (0.1-1.2); Monocytes Percent Auto 10.9 % (2-11); Neutrophils Absolute Auto 1.5 x10*3/uL (2.0-8.3); Neutrophils Percent Auto 49.4 % (45-73); Platelet Count 202 X10*3/uL (160-400); Red Blood Count 5.22 X10*6/uL (4.60-5.80); Red Cell Distribution Width 13.4 % (11.0-16.0)
[2024-01-01 10:18] LABS: Appearance Urine Clear; Color Urine Yellow; Glucose Urine UA Negative (Negative); Leukocyte Esterase Urine Negative (Negative); Nitrite Urine Negative (Negative); Specific Gravity - Urine 1.015 (1.005-1.025); Urine Blood Negative (Negative); Urine Ketones Negative (Negative); Urine Protein Negative (Neg-Trace)
[2024-01-01 10:55] LABS: Alanine Aminotransferase 15 U/L (0-40); Albumin Level 4.2 g/dL (3.5-5.0); Alkaline Phosphatase 58 U/L (39-117); Anion Gap 9 (12-20); Aspartate Amino Transferase 17 U/L (5-37); Bilirubin Total 0.9 mg/dL (0.0-1.0); Blood Urea Nitrogen 11 mg/dL (9-16); Carbon Dioxide 29 mmol/L (22-29); Chloride 106 mmol/L (96-108); Cholesterol 196 mg/dL (<200); Estimated Glomerular Filt Rate > 60; Glucose Fasting 91 mg/dL (60-99); HDL Cholesterol 57 mg/dL (>40); Iron 103 mcg/dL (45-160); LDL Cholesterol Calculated 128 mg/dL (<100); Percent Iron Saturation 43 % (15-50); Potassium 4.3 mmol/L (3.3-5.1); Sodium 140 mmol/L (135-145); Total Iron Binding Capacity 237 mcg/dL (228-428); Total Protein 6.7 g/dL (6.5-8.0); Triglycerides 57 mg/dL (<150); Unsaturated Iron Binding 134 ug/dL
[2024-01-01 10:58] LABS: Ferritin 244 ng/mL (20-250)
== END 2024-01-01 08:14 | disposition home or self-care (01) ==
LOC: HO.HMGCX 08:13
PROVIDERS: PCP Nurse Practitioner Family; Visit Provider Nurse Practitioner Family
DX: M25.511 Pain in right shoulder (principal); E83.119 Hemochromatosis, unspecified; Z13.6 Encounter for screening for cardiovascular disorders; Z00.00 Encounter for general adult medical examination without abnormal findings
CPT/HCPCS: 36415; 73030; 73110; 80053; 80061; 81003; 82728; 83540; 84443; 85025

== ENCOUNTER 2024-01-22 12:27 | Outpatient (AMB) | payer BC, SELFPAY ==
[2024-01-22 12:49] VITALS: BP 110/70; PULSE 66; O2SAT 97; BMI 22.8
--- NOTE | 2024-01-22 12:49 | AM.OFFWIN_ITS ---
Intake Vital Signs 01/22/24 12:49 Height 5 ft 6 in Weight 141 lb BMI 22.8 BP 110/70 Blood Pressure Location Rt brachial Position Sitting Pulse 66 Pulse Source Pulse Oximeter Pulse Oximetry (%) 97 Oxygen Delivery Method Room Air Intake Visit Reasons: EP-b/l arm poison Amy Intake Note: Patient here for poison amy that he noticed last week. Patient Tobacco Use Status: Never used Tobacco Allergies No Known Allergies Allergy (Verified 01/22/24 12:58) Do you need a note to return to daycare/school/sports/work: No HPI HPI Comments History of Present Illness Details 48 y/o male patient who presents to the walk in clinic with c/o Very itchy rash on his upper arms. He does believe he was in-contact with a Poison Amy plant last week while working in the yard. [facility] Medical History No pertinent past medical history Surgical History Hx of hernia repair Family History Father Substance use disorder Mother Lung cancer Social History Housing: House Patient Tobacco Use Status: Never used Tobacco e-Cigarette/Vaping Use: Never Used Second Hand Smoke Exposure: No service: No Current occupational status: employed Current occupation: [employer] Current occupational exposures/hazards: Yes Cognitive needs: No Hearing needs: No Vision needs: Yes Review of Systems Const All systems reviewed & are unremarkable except as noted in HPI and below Physical Exam Vital Signs: Last Vital Signs Pulse 66 01/22/24 12:49 BP 110/70 01/22/24 12:49 Pulse Ox 97 01/22/24 12:49 Oxygen Delivery Method Room Air 01/22/24 12:49 BMI result Body Mass Index 22.8 Const General: cooperative and no acute distress Orientation/consciousness: patient oriented x3 Skin General skin exam: dry skin and erythema Rashes: rashes noted (BUE Arms covered in red Hives) Neuro General: patient oriented x3, gait normal and moves all extremities Psych Speech and movement: Normal speech and movement present Assessment & Plan Assessment & Plan (1) Rash and nonspecific skin eruption: Code(s): R21 - Rash and other nonspecific skin eruption Plan: Consistent with Poison Amy Rash Ordered Oral and Topical Steroids Medications: New prednisone 50 mg PO DAILY 5 tabs 0RF 5 days R21 - Rash and other nonspecific skin eruption triamcinolone acetonide 0.5% 1 appl topical BID 15 grams 0RF 7 days R21 - Rash and other nonspecific skin eruption cetirizine (Zyrtec) 10 mg PO DAILY 30 caps 0RF R21 - Rash and other nonspecific skin eruption Coding Level of Care Code Est Pt Level 3 (96750) Diagnoses Rash and nonspecific skin eruption R21 Time Spent (min) 15
== END 2024-01-22 13:37 | disposition home or self-care (01) ==
PROVIDERS: PCP Nurse Practitioner Family; Visit Provider Nurse Practitioner Family
DX: R21 Rash and other nonspecific skin eruption (principal)

== ENCOUNTER → 2024-01-22 12:27 | Outpatient (BNVA) | payer BC, SELFPAY | PROVIDERS: PCP Nurse Practitioner Family; Visit Provider Nurse Practitioner Family ==

== ENCOUNTER 2024-03-19 07:00 | Outpatient (RCR) | payer BC, SELFPAY ==
--- NOTE | 2024-02-12 07:57 | MHC.PT.EP ---
[facility] [place] Office [place] Office [place] Office [address] [phone] F: [phone] F: [phone] F: [phone] F: [phone] Physical Therapy Plan of Care Date of Evaluation: 02/12/24 Date of Surgery: Diagnosis: pain in R shoulder. Assessment: Patient is a 48 year old R handed male who presents with s/s consistent with R shoulder pain. 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 Patient past medical history includes hernia surgery and R wrist OA. Current impairments include pain, posture, ROM, strength, activity tolerance and functional mobility. Functional limitations include decreased ability to reach, lift, carry, push, pull, william and work. Patient is motivated with good rehab potential. Skilled PT will address impairments and functional limitations in order to achieve goals. Frequency and Duration: The patient will be seen 2x/week for 5 weeks Short Term Goals: I with HEP - 2 weeks AROM full and pain free ER and IR - 3 weeks Impingement cluster (-) - 3 weeks Microcomputer Support Specialist Goals: Max pain with daily activities and hunting /10 - 5 weeks SPADI 18/130 or better - 5 weeks Strength 4+/5 grossly - 5 weeks Treatment Plan: Modalities to reduce pain, spasms and effusion. Manual therapy to restore motion and function. Therapeutic exercise to improve strength and flexibility. Neuromuscular re-education for posture and balance. Therapeutic activities to return to functional activities of daily living. Electronically signed by: Rah Bhat PT Please sign and return to therapist. Thank you for your referral.
--- NOTE | 2024-06-27 07:46 | MHC.PT.DC ---
[facility] [place] Office [place] Office [place] Office [address] [phone] F: [phone] F: [phone] F: [phone] F: [phone] Physical Therapy Discharge Report Diagnosis: pain in R shoulder. Date of Surgery: Date of Evaluation: 02/12/24 Date of Discharge: 04/08/24 Treatments to Date: 9 Cancellations to Date: No Shows to Date: Discharge Status: Improved Function Independent with HEP Patient Elected to Stop Discharge Summary: 03/19/24: pt progressing well overall. improved strength, pain free ROM and posture. however, he does still have positions of pain but seemingly to lesser degree. 03/12/24: pt continue to progress but also still with anterior shoulder pain with strenuous activity or challenging positions, we will continue 2 more week and continues to discern next best step 03/10/24: pt notes some pain still with outside activities. Notes s/s around AC to cervical spine. we did continue with program today with min s/s during. we will continue to progress as tolerated. 02/29/24: pt ROM full. strength with ER improving. pain is 3-5/10 at worst currently. we will continue to progress as tolerated. 02/27/24: pt progressing well with skilled PT. no adverse reactions. we have been able ot progress strength routinely with min pain. 02/21/24: pt progressing well with skilled PT. able to progress ROM and strength ex. however, he still presents fairly painful seemingly related to work related duties. I will communicated with PCP on appropriateness of restrictions here. 02/19/24: pt progressing well with skilled PT. min s/s today with progressed program. update HEP NV. 02/14/24: pt progressing well overall. progress ROM and strength, no adverse reactions. continue to progress as tolerated. Patient is a 48 year old R handed male who presents with s/s consistent with R shoulder pain. 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 Patient past medical history includes hernia surgery and R wrist OA. Current impairments include pain, posture, ROM, strength, activity tolerance and functional mobility. Functional limitations include decreased ability to reach, lift, carry, push, pull, william and work. Patient is motivated with good rehab potential. Skilled PT will address impairments and functional limitations in order to achieve goals. Electronically signed by: Rah Bhat, PT Please sign and return to therapist. Thank you for your referral.
== END 2024-06-27 07:46 | disposition home or self-care (01) ==
LOC: HO.PTCHIC 07:00
PROVIDERS: PCP Nurse Practitioner Family; Visit Provider Nurse Practitioner Family
DX: M25.511 Pain in right shoulder (principal); M25.531 Pain in right wrist
CPT/HCPCS: 97110; 97140; 97161

== ENCOUNTER 2025-01-15 10:32 | Outpatient (AMB) | payer BC, SELFPAY ==
[2025-01-15 10:58] VITALS: BP 102/68; PULSE 66; RESP 16; O2SAT 98; BMI 23.6
--- NOTE | 2025-01-15 10:58 | A.OFFPC_ITS ---
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 Required: No Accompanied by: Self / Same As Patient Allergies No Known Allergies Allergy (Verified 01/15/25 10:58) Medication List - Last Reconciled 01/15/25 by ASIYA Billings-RICARDO cetirizine (Zyrtec) 10 mg PO DAILY Tobacco use date assessed: 01/15/25 Dental Screening Dental Screen Date: 01/15/25 Did you have a dental visit in the last 12 months?: Yes Did you have a dental problem in the last 6 months where you did not have access to dental care?: No Was dental information given to patient?: Patient declined HPI Annual visit HPI Details History of Present Illness The patient is a 49-year-old male presenting for a physical examination. He has a history of dyslipidemia with elevated cholesterol levels. He is exploring natural treatment options like [place], contingent on upcoming lab results. The patient leads an active lifestyle and does not consume drugs or alcohol. family hx of hemochromatosis, will check ferritin/iron levels. Health Maintenance - Consideration of natural supplements f or cholesterol management: [place] Social History - Exercise: Fairly active lifestyle - Substance use: Denies drug and alcohol use Review of Systems - Cardiovascular: Denies chest pain - Respiratory: Denies shortness of breat h - Gastrointestinal: Denies abdominal mikey n, blood in stool, constipation, diarrhea -denies any si or hi Physical Exam General: Cooperative, healthy appearing, comfortable, no acute distress and well developed Orientation: Patient oriented x3 Limitations: No limitations Head: Normal to inspection Ears: Hearing grossly normal bilaterally Nose: Normal external nose present Face and sinus: Normal facial exam Eyes: Appearance normal, both eyes and all related structures Neck: Normal visual inspection and Yes full ROM Respiratory: Normal respiratory effort and able to speak in complete sentences. Clear to auscultation bilaterally Cardiovascular: Regular rate and rhythm. Normal S1 and S2 GI: Normal to inspection. Soft to palpation and nontender : testicles without masses/lesions and no hernias appreciated Skin: No rashes or lesions noted Neuro: Patient oriented x3 Extremities: Normal to inspection Results Plan 1. Dyslipidemia The patient is not currently interested in pharmacological treatment for dyslipidemia. He is considering the use of [place] as a natural alternative, contingent on future laboratory results. 2. physical exam Discussion Notes During the visit, we discussed the patient's dyslipidemia and his preference to avoid medications at this time. I recommended he consider [place] as a natural option, and we will reassess based on his upcoming lab results. Patient Instructions - Consider researching [place] a s a natural supplement for cholesterol management. - Follow up with lab results to determin e the next steps in managing cholesterol levels. [facility] Medical History No pertinent past medical history Surgical History Hx of hernia repair Family History Father Substance use disorder Mother Lung cancer Social History Housing: House Patient Tobacco Use Status: Never used Tobacco e-Cigarette/Vaping Use: Never Used Second Hand Smoke Exposure: No service: No Current occupational status: employed Current occupation: [employer] Current occupational exposures/hazards: Yes Cognitive needs: No Hearing needs: No Vision needs: Yes Questionnaire PHQ-9 Over the last 2 weeks, how often have you been bothered by any of the following problems? 1. Little interest or pleasure in doing things: not at all 2. Feeling down, depressed, or hopeless: not at all 3. Trouble falling or staying asleep, or sleeping too much: not at all 4. Feeling tired or having little energy: not at all 5. Poor appetite or overeating: not at all 6. Feeling bad about yourself - or that you are a failure or have let yourself or your family down: not at all 7. Trouble concentrating on things, such as reading the newspaper or watching television: not at all 8. Moving or speaking so slowly that other people could have noticed. Or the opposite - being so fidgety or restless that you have been moving around a lot more than usual: not at all 9. Thoughts that you would be better off or of hurting yourself in some way: not at all Total score: 0 Depression Screening Interpretation: Negative Depression Screening Done: Yes 61517 - PHQ-9 Billing: Yes Source: Developed by Drs. Danny Quintana, Tammi Huerta, Jamal Ramsay and colleagues, with an educational shaheen from [employer]. Thrive Questionnaire Date Thrive assessed: 01/08/25 I am a: Patient What is your living situation today?: I have a steady place to live Within the past 12 months, did the food you bought not last and you didn't have the money to get more?: Never true Within the past 12 months, did you worry whether your food would run out before you got money to buy more?: Never true Do you have trouble paying for medicines?: No Do you have trouble getting transportation to medical appointments?: No Do you have trouble paying your heating and electricity bill?: No Do you have trouble taking care of your child, family member or friend?: No Do you have trouble with day-to-day activities such as bathing, preparing meals, shopping, managing finances, etc.?: No Are you currently unemployed and looking for a job?: No Are you interested in more education?: No Please select the resources that you would like help with: None Currently or been in a relationship where the following occur: No concerns reported THRIVE Score: 0 AUDIT C Alcohol Use Questionnaire (AUDIT-C) 1. How often do you have a drink containing alcohol?: Never 3. How often do you have six or more drinks on one occasion?: Never Total Score: 0 ANTONIO-7 AMB Questionnaire ANTONIO-7 Date ANTONIO - 7 assessed: 01/15/25 Feeling nervous, anxious, or on edge: 0 = Not at all Not being able to stop or control worryin = Not at all Worrying too much about different things: 0 = Not at all Trouble relaxin = Not at all Being so restless that it is hard to sit still: 0 = Not at all Becoming easily annoyed or irritable: 0 = Not at all Feeling afraid as if something awful might happen: 0 = Not at all Total ANTONIO-7 score (0-4 normal; 5-9 mild; 10-14 moderate; 15-21 severe): 0 Source: Developed by Drs. Danny Quintana, Tammi Huerta, Jamal Ramsay and colleagues, with an educational shaheen from [employer]. ANTONIO-7 Assessment Billing ANTONIO-7 Assessment Tool: ANTONIO-7 Assessment 89970 Physical exam (Primary Care) Vital Signs: Last Vital Signs Pulse 66 01/15/25 10:58 Resp 16 01/15/25 10:58 BP 102/68 01/15/25 10:58 Pulse Ox 98 01/15/25 10:58 Oxygen Delivery Method Room Air 01/15/25 10:58 BMI result Body Mass Index 23.6 Tobacco/Smoking Status: Tobacco use Status Tobacco use date assessed 01/15/25 01/15/25 11:01 Patient Tobacco Use Status Never used Tobacco 01/15/25 11:01 e-Cigarette/Vaping Use Never Used 01/15/25 11:01 PHQ-9: PHQ-9 Score PHQ-9: Total score 0 01/15/25 11:01 Depression Screening Interpretation: Negative Thrive Assessment: Date of Thrive Assessment Date Thrive assessed 01/08/25 01/15/25 11:01 Currently or been in a relationship where the following occur: No concerns reported Coding Level of Care Code Est Pt Prev Care 40-64y(24681) Diagnoses Physical exam Z00.00 Hemochromatosis E83.119 Need for hepatitis C screening test Z11.59 Screening for prostate cancer Z12.5 Dyslipidemia E78.5 Additional Codes ANTONIO-7 Assessment Billing - ANTONIO-7 Assessment Tool: ANTONIO-7 Assessment 32697 ([id number]) PHQ-9 - 92110 - PHQ-9 Billing: Yes ([id number]) Assessment & Plan Assessment & Plan (1) Physical exam: Code(s): Z00.00 - Encounter for general adult medical examination without abnormal findings Category: Medical (2) Hemochromatosis: Code(s): E83.119 - Hemochromatosis, unspecified Category: Medical (3) Need for hepatitis C screening test: Code(s): Z11.59 - Encounter for screening for other viral diseases Category: Medical (4) Screening for prostate cancer: Code(s): Z12.5 - Encounter for screening for malignant neoplasm of prostate Category: Medical (5) Dyslipidemia: Code(s): E78.5 - Hyperlipidemia, unspecified Category: Medical Plan . Orders: Orders Comprehensive [place]. Panel Fast Today Z00.00 - Encounter for general adult medical examination without abnormal findings Lipid Panel Today Z00.00 - Encounter for general adult medical examination without abnormal findings IRON PROFILE Today E83.119 - Hemochromatosis, unspecified Hepatitis A,B,C Profile Today Z00.00 - Encounter for general adult medical examination without abnormal findings, Z11.59 - Encounter for screening for other viral diseases Prostate Specific Antigen Scr Today Z12.5 - Encounter for screening for malignant neoplasm of prostate Complete Blood Count Auto Diff Today Z00.00 - Encounter for general adult medical examination without abnormal findings TSH reflex Free T4 Today Z00.00 - Encounter for general adult medical examination without abnormal findings UA CC w/rflx Micro + Cult Today Z00.00 - Encounter for general adult medical examination without abnormal findings Ferritin Today E83.119 - Hemochromatosis, unspecified
== END 2025-01-15 11:45 | disposition home or self-care (01) ==
LOC: HO.HMCC 10:33
PROVIDERS: PCP Nurse Practitioner Family; Visit Provider Nurse Practitioner Family
DX: Z00.00 Encounter for general adult medical examination without abnormal findings (principal); E83.119 Hemochromatosis, unspecified; Z11.59 Encounter for screening for other viral diseases; Z12.5 Encounter for screening for malignant neoplasm of prostate; E78.5 Hyperlipidemia, unspecified

== ENCOUNTER → 2025-01-15 10:32 | Outpatient (BNVA) | payer BC, SELFPAY | PROVIDERS: PCP Nurse Practitioner Family; Visit Provider Nurse Practitioner Family | DX: Z00.00 Encounter for general adult medical examination without abnormal findings (principal); E83.119 Hemochromatosis, unspecified; E78.5 Hyperlipidemia, unspecified; Z13.31 Encounter for screening for depression; Z13.39 Encounter for screening examination for other mental health and behavioral disorders | CPT/HCPCS: 96127 ==

== ENCOUNTER 2025-01-16 06:02 | Outpatient (REF) | payer BC, SELFPAY ==
[2025-01-16 10:06] LABS: MANUAL DIFF FLAG NO
[2025-01-16 10:19] LABS: Hematocrit 49.4 % (42.0-52.0); Hemoglobin 16.9 g/dl (14.0-18.0); Imm Gran Abs Auto 0.01 X10*3/uL (0.00-0.03); Imm Gran Pct Auto 0.3 % (0.0-0.4); Lymphocytes Absolute Auto 1.1 X10*3/uL (1.2-4.9); Mean Corpuscular HGB Conc 34.2 g/dl (31.0-36.0); Mean Corpuscular Hemoglobin 31.4 pg (27.0-33.0); Mean Corpuscular Volume 91.8 fL (80.0-98.0); NRBC Abs Auto 0.000 X10*3/uL (0.0-0.012); NRBC Pct Auto 0.0 /100WBC (0.0-0.2); Platelet Count 182 X10*3/uL (160-400); Red Blood Count 5.38 X10*6/uL (4.60-5.80); White Blood Count 3.4 X10*3/uL (4.8-10.8)
[2025-01-16 10:52] LABS: Alanine Aminotransferase 18 U/L (0-40); Albumin Level 4.6 g/dL (3.5-5.0); Alkaline Phosphatase 58 U/L (39-117); Anion Gap 11 (12-20); Aspartate Amino Transferase 26 U/L (5-37); Blood Urea Nitrogen 13 mg/dL (9-16); Calcium 9.0 mg/dL (8.4-10.2); Carbon Dioxide 28 mmol/L (22-29); Chloride 106 mmol/L (96-108); Cholesterol 211 mg/dL (<200); Estimated Glomerular Filt Rate > 60; Ferritin 187 ng/mL (20-250); HDL Cholesterol 65 mg/dL (>40); Iron 105 mcg/dL (45-160); Percent Iron Saturation 45 % (15-50); Potassium 4.1 mmol/L (3.3-5.1); Sodium 141 mmol/L (135-145); Total Iron Binding Capacity 235 mcg/dL (228-428); Total Protein 6.8 g/dL (6.5-8.0); Triglycerides 67 mg/dL (<150); Unsaturated Iron Binding 130 ug/dL
[2025-01-16 11:08] LABS: Appearance Urine Clear; Glucose Urine UA Negative (Negative); HBS Num1 0.41 mIU/mL (0-7.99); HBc Num1 0.05 S/CO (0.00-0.79); HBsAGNum1 0.47 S/CO (0.00-0.99); Hepatitis A Antibody IgM 0.18 Index (0-0.79); Hepatitis B Surface Antigen Negative (Negative); PH 5.5 (5.0-9.0); Specific Gravity - Urine 1.020 (1.005-1.025); ~HepC Num1 0.08 S/CO (0.00-0.79); ~Hepatitis A Antibody IgM Nonreactive (Nonreactive); ~Hepatitis B Surface Antibody NONREACTIVE (Nonreactive); ~Hepatitis C Antibody Nonreactive (Nonreactive)
== END 2025-01-16 06:03 | disposition home or self-care (01) ==
LOC: HO.HMGCLDS 06:02
PROVIDERS: PCP Nurse Practitioner Family; Visit Provider Nurse Practitioner Family
DX: Z00.00 Encounter for general adult medical examination without abnormal findings (principal); E83.119 Hemochromatosis, unspecified; Z12.5 Encounter for screening for malignant neoplasm of prostate; Z13.6 Encounter for screening for cardiovascular disorders; Z13.29 Encounter for screening for other suspected endocrine disorder
CPT/HCPCS: 36415; 80053; 80061; 81003; 82728; 83540; 84153; 84443; 85025; 86704; 86706; 86709; 86803; 87340